=== PATIENT | female | born 1965 | race Caucasian/White ===

== ENCOUNTER 2018-12-20 10:08 | Emergency (ER) | payer OTHER ==
[~2018-12-20] VITALS: Ht 152.4 cm; Wt 54.9 kg
[2018-12-20] MEDS ORDERED: NORVASC10 MG (10:41)
== END 2018-12-20 18:36 | disposition home or self-care (01) ==
LOC: ER 10:08
DX: N39.0 Urinary tract infection, site not specified (principal); R10.31 Right lower quadrant pain

== ENCOUNTER 2019-01-01 07:59 | Outpatient (CLI) | payer OTHER ==
[~2019-01-01 07:59] MED LIST: NORVASC10 MG
== END 2019-01-01 08:05 | disposition home or self-care (01) ==
LOC: LAB 07:59
DX: N39.0 Urinary tract infection, site not specified (principal)

== ENCOUNTER 2019-02-03 07:25 | Outpatient (CLI) | payer OTHER | END 2019-02-03 07:32 | disposition home or self-care (01) | LOC: MAMO-SONO 07:25 | DX: Z12.31 Encounter for screening mammogram for malignant neoplasm of breast (principal); N64.4 Mastodynia ==

== ENCOUNTER → 2019-02-25 07:00 | Outpatient (CLI) | payer OTHER | END | disposition home or self-care (01) | LOC: LAB 07:00 | DX: E78.49 Other hyperlipidemia (principal); E55.9 Vitamin D deficiency, unspecified; Z00.00 Encounter for general adult medical examination without abnormal findings; R42 Dizziness and giddiness; R09.2 Respiratory arrest; K51.911 Ulcerative colitis, unspecified with rectal bleeding ==

== ENCOUNTER 2019-05-07 06:51 | Outpatient (CLI) | payer OTHER | END 2019-05-07 06:55 | disposition home or self-care (01) | LOC: LAB 06:51 | DX: E03.8 Other specified hypothyroidism (principal) ==

== ENCOUNTER 2019-05-07 07:31 | Outpatient (CLI) | payer OTHER | END 2019-05-07 08:35 | disposition home or self-care (01) | LOC: SONOGRAMA 07:31 | DX: E04.8 Other specified nontoxic goiter (principal) ==

== ENCOUNTER 2019-05-19 13:14 | Outpatient (CLI) | payer OTHER | END 2019-05-19 13:19 | disposition home or self-care (01) | LOC: LAB 13:14 | DX: J11.1 Influenza due to unidentified influenza virus with other respiratory manifestations (principal); R05 Cough ==

== ENCOUNTER 2019-08-20 06:44 | Outpatient (CLI) | payer OTHER | END 2019-08-20 15:00 | disposition home or self-care (01) | LOC: LAB 06:44 | DX: E03.8 Other specified hypothyroidism (principal) ==

== ENCOUNTER 2019-12-18 04:00 | Outpatient (CLI) | payer OTHER | END 2019-12-18 15:01 | disposition home or self-care (01) | LOC: PPH VACUNA 04:00 | DX: Z23 Encounter for immunization (principal) ==

== ENCOUNTER 2020-02-01 06:58 | Outpatient (CLI) | payer OTHER | END 2020-02-01 07:03 | disposition home or self-care (01) | LOC: LAB 06:58 | PROVIDERS: ATTEND Internal Medicine Endocrinology, Diabetes & Metabolism | DX: E06.3 Autoimmune thyroiditis (principal) ==

== ENCOUNTER 2020-06-29 13:56 | Outpatient (CLI) | payer OTHER | END 2020-06-29 13:58 | disposition home or self-care (01) | LOC: MRI 13:56 | PROVIDERS: ATTEND Internal Medicine | DX: G93.89 Other specified disorders of brain (principal); R51.9 Headache, unspecified | CPT/HCPCS: 70551 ==

== ENCOUNTER → 2020-08-15 07:23 | Outpatient (CLI) | payer OTHER | END | disposition home or self-care (01) | LOC: LAB 07:23 | PROVIDERS: ATTEND Internal Medicine Endocrinology, Diabetes & Metabolism | DX: E06.3 Autoimmune thyroiditis (principal); E78.89 Other lipoprotein metabolism disorders ==

== ENCOUNTER 2020-09-23 16:00 | Outpatient (CLI) | payer OTHER | END 2020-09-23 16:02 | disposition home or self-care (01) | LOC: RAD 16:00 | PROVIDERS: ATTEND Orthopaedic Surgery | DX: M25.512 Pain in left shoulder (principal); M95.4 Acquired deformity of chest and rib ==

== ENCOUNTER 2020-12-19 07:11 | Outpatient (CLI) | payer OTHER | END 2020-12-19 07:17 | disposition home or self-care (01) | LOC: RAD 07:11 | PROVIDERS: ATTEND Physical Medicine & Rehabilitation | DX: M62.830 Muscle spasm of back (principal); M54.2 Cervicalgia; M54.6 Pain in thoracic spine ==

== ENCOUNTER 2020-12-26 08:00 | Outpatient (CLI) | payer OTHER | END 2020-12-26 08:30 | disposition home or self-care (01) | LOC: PPH VACUNA 08:00 | PROVIDERS: ATTEND Emergency Medicine Pediatric Emergency Medicine | DX: Z23 Encounter for immunization (principal) ==

== ENCOUNTER 2021-01-26 14:33 | Outpatient (CLI) | payer OTHER | END 2021-01-26 14:35 | disposition home or self-care (01) | LOC: MAMO-SONO 14:33 | PROVIDERS: ATTEND Radiology Diagnostic Radiology | DX: N60.89 Other benign mammary dysplasias of unspecified breast (principal); Z12.39 Encounter for other screening for malignant neoplasm of breast ==

== ENCOUNTER 2021-01-30 07:41 | Outpatient (CLI) | payer OTHER | END 2021-01-30 08:39 | disposition home or self-care (01) | LOC: LAB 07:41 | PROVIDERS: ATTEND Internal Medicine Endocrinology, Diabetes & Metabolism | DX: E03.8 Other specified hypothyroidism (principal); E78.00 Pure hypercholesterolemia, unspecified ==

== ENCOUNTER 2021-02-02 13:13 | Outpatient (CLI) | payer OTHER | END 2021-02-02 13:21 | disposition home or self-care (01) | LOC: SONOGRAMA 13:13 | DX: N60.11 Diffuse cystic mastopathy of right breast (principal); N60.12 Diffuse cystic mastopathy of left breast; N64.89 Other specified disorders of breast ==